=== PATIENT | female | born 1950 | race Caucasian/White ===

== ENCOUNTER 2019-03-29 04:49 | Inpatient (IN) ==
--- NOTE | 2019-02-20 11:20 | PAT Medication Instructions ---
Medication Instructions Date of Service February 20, 2019 Home Medications Cetyl Myristoleate 1 tab PO BID Multimin 2 tab PO HS Univase 1 tab PO BID aspirin [Aspirin Low Dose] 81 mg PO DAILY stepan seed oil-omega 3-6-9 1,000 cap PO HS hydrochlorothiazide 12.5 mg PO QAM lisinopril 10 mg PO QAM STOP taking 2 weeks before surgery (or as soon as possible if surgery is within 2 weeks) Cetyl Myristoleate 1 tab PO BID Multimin 2 tab PO HS stepan seed oil-omega 3-6-9 1,000 cap PO HS DO NOT take the morning of surgery Univase 1 tab PO BID Take morning of surgery With a small sip of water, OTHERWISE NOTHING TO EAT OR DRINK AFTER MIDNIGHT: aspirin [Aspirin Low Dose] 81 mg PO DAILY Take evening before surgery Univase 1 tab PO BID Other Notes If you have any questions please call us at [phone] or [phone] or [phone] or [phone]
--- NOTE | 2019-02-20 13:07 | Anesthesiology Consultation ---
Date of Service February 20, 2019 Assessment & Plan (1) Encounter for pre-operative examination: Chart Review Chart Review: Pending: Refer to Additional Notes / Consult section (pending testing labs, EKG,chest) Consults Requested none History Surgery Operation Date: 03/29/19 09:20 Proposed Procedures p Left Total Knee Arthroplasty - Bigg Barboza MD Height/Weight Height: 5 ft 3 in Weight: 92.3 kg Allergies Allergy/AdvReac Type Severity Reaction Status Date / Time clindamycin Allergy Severe tongue Verified 02/20/19 08:50 swelling nickel Allergy Mild redness & Verified 02/20/19 08:52 irritation Penicillins Allergy Unknown Unknown Verified 02/20/19 08:50 Medications Home Medications Medication Instructions Recorded Confirmed Last Taken Cetyl Myristoleate 1 tab PO BID 02/20/19 02/20/19 Unknown Multimin 2 tab PO HS 02/20/19 02/20/19 Unknown Univase 1 tab PO BID 02/20/19 02/20/19 Unknown aspirin [Aspirin Low Dose] 81 mg PO DAILY 02/20/19 02/20/19 Unknown stepan seed oil-omega 3-6-9 1,000 cap PO HS 02/20/19 02/20/19 Unknown hydrochlorothiazide 12.5 mg PO QAM 02/20/19 02/20/19 Unknown lisinopril 10 mg PO QAM 02/20/19 02/20/19 Unknown Past Medical History Medical History Asthma asthmatic-bronchitis as a child. no inhalers currently. no problems currently. Hypertension Osteoarthritis Past Family History Family History Mother FHx: Parkinson's disease Past Surgical History Surgical History History of bilateral tubal ligation History of colonoscopy History of tonsillectomy History of tooth extraction Social History Smoking Status: Former smoker tobacco type: cigarettes Smoking cigarettes per day: 1 ppd x 10 years Do You Dip or Chew Tobacco: No Smoking End Date: 1984 Hx Alcohol Use: No Hx Substance Use: No substance use type: does not use Physical Exam Vital Signs Last Vital Signs Temp 36.6 C 02/20/19 12:25 Pulse 70 02/20/19 12:25 Resp 18 02/20/19 12:25 BP 145/83 H 02/20/19 12:25 Pulse Ox 98 02/20/19 12:25 ENMT Mouth: + dentures (full upper, partial lower) Thyromental Distance: > or= 3.5 Finger Breadths Mallampati Class: III Neck normal visual inspection Respiratory normal respiratory effort Auscultation: lungs clear to auscultation bilaterally Cardiovascular Rate/Rhythm: regular rate and regular rhythm Heart Sounds: + murmur (2/6 systolic, non-radiating) Vessels: no carotid bruit Musculoskeletal Extremities: extremities normal to inspection
[2019-02-20 13:20] LABS: Basophils # (auto) 0.04 K/uL (0-0.2); Basophils % (auto) 0.5 %; Eosinophils # (auto) 0.17 K/uL (0-0.5); Hematocrit (blood only) 40.7 % (37-47); Hemoglobin 13.8 g/dL (12.0-16.0); Immature Granulocytes # (auto) 0.01 K/uL (0.00-0.02); Immature Granulocytes % (auto) 0.1 %; Lymphocytes # (auto) 2.41 K/uL (1.2-3.4); Lymphocytes % (auto) 28.3 %; Mean Corpuscular Hemoglobin 28.5 pg (25-34); Mean Corpuscular Hgb Conc 33.9 g/dL (32-36); Mean Corpuscular Volume 84.1 fL (80-100); Mean Platelet Volume 10.7 fL (7.4-10.4); Monocytes # (auto) 0.65 K/uL (0.11-0.59); Monocytes % (auto) 7.6 %; Neutrophils # (auto) 5.23 K/uL (1.4-6.5); Neutrophils % (auto) 61.5 %; Platelet Count 248 K/uL (130-400); RDW Coefficient of Variation 14.2 % (11.5-14.5); RDW Standard Deviation 43.7 fL (36.4-46.3); Red Blood Count 4.84 M/uL (4.2-5.4); White Blood Count 8.51 K/uL (4.8-10.8)
--- NOTE | 2019-02-20 13:27 | XRay Report ---
XR chest Pre-admission PA/Lat CLINICAL HISTORY: 68 years-old Female presenting with preoperative evaluation. TECHNIQUE: PA and lateral views of the chest were obtained. COMPARISON: None. FINDINGS: Atherosclerosis of the aortic arch. Cardiac silhouette mildly enlarged. Lungs and pleural spaces cb r. Degenerative changes of the thoracic spine. Upper abdomen normal. IMPRESSION: 1. Mild cardiomegaly. No other convincing evidence of acute cardiopulmonary disease. Electronically signed by: Júnior Higginbotham M.D. 02/20/2019 1:25 PM
[2019-02-20 13:28] LABS: BUN Creatinine Ratio 16.9 (10-20); Calcium 9.3 mg/dl (8.5-10.1); Creatinine Clr Calc Pharmacy 67.1 ml/min; Est GFR (African American) 78.3; Est GFR (Non-African American) 67.5
[2019-02-20 13:32] LABS: Partial Thromboplastin Time 28.3 Seconds (21.0-31.0); Prothrombin Time 9.9 Seconds (9.0-12.0)
--- NOTE | 2019-03-24 01:40 | History and Physical Report ---
DATE OF ADMISSION: 03/29/2019 CHIEF COMPLAINT: Bilateral knee pain and discomfort, left side greater than right. HISTORY OF PRESENT ILLNESS: The patient is a 68-year-old white female referred by my partner Dr. Baird for surgical treatment of her knees. She has got a fairly long history of bilateral knee pain and discomfort that has just gradually gotten worse over time. It has gotten significantly worse over the past several months. She has had intermittent injuries to her knee from time to time but nothing longstanding. Pain has got pretty global. The more she walks, the more it hurts. It bothers with bending and squatting activities. She has difficulty going up and down stairs. The more she walks, the more pain she has. She would like to proceed with definitive treatment. PAST MEDICAL HISTORY: 1. Hypertension. 2. Bronchial asthma. 3. Obesity with a BMI of 36. 4. Osteoarthritis. PAST SURGICAL HISTORY: Include tubal ligation. ALLERGIES: 1. PENICILLIN, REACTION UNKNOWN. 2. CLINDAMYCIN. 3. QUESTION OF A NICKEL ALLERGY. CURRENT MEDICINES: Include: 1. Lisinopril half tablet a day. 2. Hydrochlorothiazide half tablet a day. 3. HepatoVin supplement. 4. Univasc. 5. CBD oil. 6. Multivitamin. 7. Baby aspirin. SOCIAL HISTORY: A 68-year-old white female. She is . She is from [place]. Rare alcohol intake. No significant smoking or drug history. FAMILY HISTORY: Significant for heart disease and kidney cancer. REVIEW OF SYSTEMS: Negative for diabetes, neurologic problems, vascular problems or bleeding disorders. Denies any chest pain or shortness of breath. No history of DVT or PE. No known bleeding problems. PHYSICAL EXAMINATION: GENERAL: Shows a pleasant, middle-aged female. She looks to be in pretty good health. HEENT: Benign. NECK: Supple, no lymphadenopathy. LUNGS: Clear to auscultation. HEART: Regular rate and rhythm. ABDOMEN: Soft, nontender, nondistended. EXTREMITIES: Grossly neurovascularly intact except as follows: Examination of both knees reveal patient ambulates with a little bit of a limp. Examination of the left knee reveals a walk with a little bit of a flexion contracture. Her range of motion is about 10-15 degrees short of full extension to about 110 degrees of flexion. Knee is a bit stiff. She is tender diffusely around her knee. She has got bony hypertrophy medially and laterally. Moderate sized joint effusion. No pain with hip motion. Examination of the right knee reveals fairly neutral alignment. Mild diffuse tenderness. Small knee effusion. Range of motion 5-120. No instability. IMAGING DATA: X-rays of both knees reveal advanced bilateral knee DJD. X-ray of the left knee is a bit worse than the right. She has got complete loss of her medial joint space with some tibiofemoral subluxation and osteophytes in all 3 compartments. The right knee is in a bit more valgus alignment. She has got advanced patellofemoral arthritis on the left side as well. ASSESSMENT: A 68-year-old white female with advanced bilateral knee degenerative joint disease. The left side is more symptomatic than the right. She has failed conservative treatment and elected to proceed with left knee replacement. PLAN: We will take her to the operating room and do a left total knee replacement. The risks and benefits of this procedure were explained to the patient, including but not limited to, DVT, PE, , infection, neurological injury, vascular injury, bleeding problem, pain, limited range of motion, stiffness, failure to relieve her symptoms, incomplete relief of symptoms, need for further surgery in the future, fracture, leg length inequality, nerve palsy, etc. The patient understands and desires to proceed. Informed consent was obtained. We did talk about holding her lisinopril the morning of surgery. She apparently has some concern of a nickel allergy, so we will likely use a Crawley and Nephew Journey zirconium total knee arthroplasty. She plans discharged to home using the [facility] home health program. SATNAM
[~2019-03-29 04:49] MED LIST: ANCEF - ALLERGY NOTED TO ORDERED MEDICATION SCH
[2019-03-29] MEDS ORDERED: LR 500ML BOLUS, THEN 15ML/HR IV SCH (06:00)
[2019-03-29] MEDS ORDERED: LR 60ML/HR IV SCH (06:00)
[2019-03-29] MEDS ORDERED: BUPIVACAINE LIPOSOME/PF 266 MG, BUPIVACAINE/EPINEPHRINE 50 ML, SODIUM CHLORIDE 0.9% 30 ... INFIL SCH (06:00)
[2019-03-29] MEDS ORDERED: FAMOTIDINE 20 MG TAB PO SCH (06:00)
[2019-03-29] MEDS ORDERED: METOCLOPRAMIDE HCL 10 MG TABLET PO SCH (06:00)
[2019-03-29] MEDS ORDERED: SCOPOLAMINE 1.5 MG TDSY TD SCH (06:00)
[2019-03-29] MEDS ORDERED: CEFAZOLIN 2000MG 2,000 MG/15 ML SYR IV SCH (06:00)
[2019-03-29] MEDS ORDERED: GABAPENTIN 300 MG CAP PO SCH (06:00)
[2019-03-29] MEDS ORDERED: ACETAMINOPHEN 500 MG TAB PO SCH (06:00)
[2019-03-29] MEDS ORDERED: MIDAZOLAM HCL 1 MG/ML 2ML VIAL ONE ×2 (06:25→07:59)
[2019-03-29] MEDS ORDERED: EPINEPHrine INJ 1 MG/ML AMP ONE (06:25)
[2019-03-29] MEDS ORDERED: fentaNYL citrate 100 MCG/2 ML VIAL ONE (06:25)
[2019-03-29] MEDS ORDERED: ROPIVACAINE 0.5% 5 MG/ML 30 ML VIAL ONE (06:25)
[2019-03-29] MEDS ORDERED: BUPIVACAINE 0.5 % 5 MG/1 ML PF 10ML VIAL ONE (06:25)
[2019-03-29] MEDS ORDERED: PROPOFOL IV EMULSION 10 MG/ML 20 ML VIAL IV ONE (06:25)
[2019-03-29] MEDS ORDERED: TRANEXAMIC ACID 1,000 MG **IV Intra-op IV SCH (06:30)
[2019-03-29] MEDS ORDERED: BUPIVACAINE/EPINEPHRINE 0.25% 1:200,000 30 ML VIAL ONE (06:43)
[2019-03-29] MEDS ORDERED: BUPIVACAINE LIPOSOME 1.3% 266 MG/20 ML VIAL ONE (06:43)
[2019-03-29] MEDS ORDERED: SODIUM CHLORIDE 0.9% PF 50 ML VIAL ONE (06:43)
[2019-03-29] MEDS ORDERED: BACITRACIN INJ 50,000 UNIT VIAL ONE (06:43)
--- NOTE | 2019-03-29 06:52 | History & Physical Bridge Note ---
Date of Service March 29, 2019 History & Physical Bridge Note I have examined the patient, reviewed the History & Physical and in the interval since the performance of the History & Physical I have noted the following changes of clinical significance: no changes noted
[2019-03-29] MEDS ORDERED: CEFAZOLIN 2,000 MG/15 ML IV PUSH IV ONE (06:54)
[2019-03-29] MEDS ORDERED: CEFAZOLIN 2000MG 2,000 MG/15 ML SYR IV ONE (06:55)
[2019-03-29] MEDS ORDERED: ePHEDrine sulfate 50 MG/ML SYR ONE (07:06)
[2019-03-29] MEDS ORDERED: PHENYLEPHRINE 100MCG/ML 5ML SYR ONE (07:06)
[2019-03-29] MEDS ORDERED: HYDROmorphone INJ 1 MG/ML SYRINGE IV PRN (07:08)
[2019-03-29] MEDS ORDERED: PHENYLEPHRINE 100MCG/ML 5ML SYR IV PRN (07:08)
[2019-03-29] MEDS ORDERED: ePHEDrine sulfate 50 MG/ML AMP IV PRN (07:08)
[2019-03-29] MEDS ORDERED: fentaNYL citrate 100 MCG/2 ML VIAL IV PRN (07:08)
[2019-03-29] MEDS ORDERED: MEPERIDINE HCL 25 MG/ML CARP IV PRN (07:08)
[2019-03-29] MEDS ORDERED: ATROPINE SULFATE 0.1 MG/ML 10ML SYR IV PRN (07:08)
[2019-03-29] MEDS ORDERED: LABETALOL HCL IV 5 MG/ML 20ML IV PRN (07:08)
[2019-03-29] MEDS ORDERED: ONDANSETRON INJ 2 MG/ML 2 ML VIAL IV PRN ×2 (07:08→10:02)
--- NOTE | 2019-03-29 08:49 | Post Operative Brief Note ---
PG Immediate Post Op with CF Date of Surgery March 29, 2019 Pre & Post Diagnosis Operation Date: 03/29/19 07:00 Pre-Op Diagnosis: LEFT KNEE DEGENERATIVE JOINT DISEASE W/KNEE PAIN Post-Op Diagnosis: LEFT KNEE DEGENERATIVE JOINT DISEASE W/KNEE PAIN I identified the patient and participated in the time-out.: Yes Procedure Operation Date: 03/29/19 07:00 Actual Procedures p Left Total Knee Replacement(Left) - Bigg Barboza MD Surgeon Bigg Barboza MD Environmental Aid Valorie, PAC Estimated Blood Loss 50 Findings Consistent with Post-Op Diagnosis Fluids 800 cc Specimens Specimen Description: A. Left knee bone and tissue Drains Cervantes Catheter Anesthesia Type Spinal MAC Complications none Disposition Accompanied Patient To Recovery: No Disposition: Recovery Room
--- NOTE | 2019-03-29 09:12 | XRay Report ---
LEFT KNEE 2 VIEWS History: Left total knee arthroplasty. Degenerative arthritis. Postop. FINDINGS: The patient is status post a left total knee arthroplasty. The hardware is intact. No fract ure or dislocation. Skin annetta are in place. IMPRESSION: Left total knee arthroplasty. No evidence for hardware complication. Electronically signed by: Bobby Galvez M.D. 03/29/2019 9:11 AM
--- NOTE | 2019-03-29 09:33 | Anesthesiology Progress Note ---
Date of Service March 29, 2019 Anesthesia Post Procedure Vital Signs Vital Signs: Temp Pulse Pulse Resp BP Pulse Ox 03/29/19 09:30 65 13 130/60 97 03/29/19 09:20 58 L 12 119/61 97 03/29/19 09:10 36.2 C L 62 13 121/57 L 98 03/29/19 09:00 70 19 125/62 96 03/29/19 08:53 36.2 C L 72 17 108/57 L 95 03/29/19 05:29 36.8 C 75 20 175/86 H 97 Transfer of Care Handoff Completed per policy Notes Mental Status: alert / awake / arousable Patient Amnestic to Procedure: Yes Nausea / Vomiting: adequately controlled Pain: adequately controlled Airway Patency, RR, SpO2: stable & adequate BP & HR: stable & adequate Hydration State: stable & adequate Neuraxial Anesthesia: was administered and sensory block is resolving Anesthetic Complications: no major complications apparent and Pt Satisfied with anesthetic care
--- NOTE | 2019-03-29 09:34 | Operative Report ---
DATE OF OPERATION: 03/29/2019 SURGEON: Bigg Barboza MD MANAGER OF FINANCIAL: JANET Hughes PREOPERATIVE DIAGNOSIS: Left knee degenerative joint disease. POSTOPERATIVE DIAGNOSIS: Left knee degenerative joint disease. PROCEDURE PERFORMED: Left cemented posterior stabilized total knee arthroplasty. COMPLICATIONS: None. ESTIMATED BLOOD LOSS: 50 mL. FLUID REPLACEMENT: 800 mL crystalloid fluid replacement. TOURNIQUET TIME: 63 minutes at 300 mmHg. ANESTHESIA: Spinal with adductor canal block. DRAINS: None. SPECIMENS: Left knee sent for pathology. OPERATIVE INDICATIONS: The patient is a 68-year-old fairly active female who has had a several year history of bilateral knee pain and discomfort, left side greater than right. She has been through extensive conservative treatment. She was significantly limited by her disease and elected to proceed with total knee arthroplasty. Of note, the patient does have an apparent NICKEL ALLERGY, so we used a Crawley & Nephew zirconium total knee arthroplasty/journey II. OPERATIVE FINDINGS: Operative findings revealed advanced left knee DJD. She had extensive grade 4 [id number] disease and erosions in all 3 compartments. She had osteophytes in all 3 compartments. She had about 10-15 degree flexion contracture. OPERATIVE IMPLANTS: Operative implants consisted of: 1. Crawley & Nephew Journey II size 5 left posterior stabilized femoral component. 2. Crawley & Nephew Journey II size 3 tibial tray. 3. An 11 mm posterior stabilized polyethylene insert. 4. A 29 x 8 all poly patella. OPERATIVE PROCEDURE: The patient was taken to the operating room, identified and placed on the operating table in supine position. All contact areas were appropriately padded. IV antibiotics provided by anesthesia team. A spinal anesthetic and adductor canal block had been provided in the holding area. Cervantes catheter was placed in sterile fashion. Left thigh tourniquet was then placed and left lower extremity was then prepped and draped in usual sterile fashion. Left leg was elevated and exsanguinated with use of an Esmarch and tourniquet was placed at 300 mmHg. An anterior approach to the left knee was then performed through a longitudinal incision centered over the patella. Sharp dissection was carried through subcutaneous tissues down to the extensor mechanism. A medial parapatellar arthrotomy incision was made. Some subperiosteal dissection was carried out medially. The fat pad resected from beneath the patellar tendon. The lateral patellofemoral ligament was released. The patella was subluxated laterally and the knee was flexed. The osteophytes were taken off the distal femur. The ACL and PCL ligament was then released from the distal femur and the tibia subluxated anteriorly. The external tibial alignment jig was then placed in the anterior face of the tibia and adjusted 16 mm medially which was maximal adjustment. Proximal tibial cut was made to remove about 2-3 mm of bone from the most deficient aspect of the medial tibial plateau. Some osteophytes were taken off medial and posteromedially. Tibia sized to a size 3. Attention was then drawn to the femur. The distal femur was entered with a sharp drill bit. Intramedullary canal was suctioned. A left 5-degree valgus cutting guide was placed. Distal femoral cutting block was pinned in place. Distal femoral cut was made to take an additional 2 mm of bone off distal femur. The femur was then sized. It was sized to a size 5. We downsized this slightly. The AP cutting block was pinned parallel to the epicondylar axis, which was 6 degrees of external rotation. The anterior cut, anterior cord, posterior cut, posterior chamfer, anterior chamfer cuts were then made. The knee was then flexed. The remnants of the medial and lateral menisci were excised. The osteophytes were taken off the posterior aspect of the femur. The femoral component was then placed. The notch preparation guide was placed and the femoral notch was created. The trochlear component was then placed. I then trialed the knee and the 11 mm insert fit most appropriately. Attention was then drawn to patella. The patella was cleaned of all soft tissues. There were large osteophytes around the patella which were removed. Patella thickness measured 18 mm and was cut down to about 13. It was sized to a size 29 patella. Lug holes were drilled for a 29 patella. Lateral osteophyte was removed. Patella button was placed. Knee was taken through range of motion, patella tracked quite nicely with no thumbs test. Attention was then drawn toward placement of permanent components. All trial components were removed. Bone plug was placed in the distal femur to limit blood loss. A double batch of Palacos G cement was mixed. A Crawley and Nephew size 5 left posterior stabilized femoral component, size 3 tibial tray, 11 mm posterior stabilized insert, and a 29 x 9 all poly patella were then cemented in place. Knee was brought into full extension until cement hardened. A final cement check was then performed. Pericapsular tissues were injected with a total of 100 mL, a combination of 20 mL Exparel, 30 mL of normal saline, 50 mL of 0.25% Marcaine with epinephrine. The patient did receive 1 gram of tranexamic acid. The tourniquet was then let down for a tourniquet time 63 minutes. Hemostasis was assured with use of electrocautery. The wound was once again irrigated. The extensor mechanism was then closed with combination of #1 PDS suture and #1 Vicryl suture in a [id number] fashion. Extensor mechanism was checked and found to be intact. The subcutaneous tissue was then closed with #2 Dexon suture in a buried interrupted fashion. Skin was closed with skin annetta. Leg was then cleaned, dried and a sterile dressing of Xeroform, 4 x 4, sterile cast padding and Arben bandage were applied. The patient then transferred to the recovery room in stable condition. The patient tolerated the procedure well with no complications. All needle and sponge counts were correct at the end of the operation. I attest to the content of the Intraoperative Record and any orders documented therein. Any exception s are noted below.
[2019-03-29] MEDS ORDERED: NALOXONE HCL 0.4 MG/1 ML VIAL/CARP IV PRN (10:02)
[2019-03-29] MEDS ORDERED: MAGNESIUM HYDROXIDE SUSP 30 ML UDC PO PRN (10:02)
[2019-03-29] MEDS ORDERED: METOCLOPRAMIDE HCL INJ 5 MG/ML 2 ML VIAL IV PRN (10:02)
[2019-03-29] MEDS ORDERED: HYDROmorphone INJ 0.5 MG/0.5 ML SYR IV PRN (10:02)
[2019-03-29] MEDS ORDERED: bisacodyL 10 MG SUPP PR PRN (10:02)
[2019-03-29] MEDS ORDERED: ALUMINUM/MAGNESIUM SUSP 30 ML UDC PO PRN (10:02)
[2019-03-29] MEDS: lisinopriL 20 MG TAB PO SCH (11:55)
[2019-03-29] MEDS: ASPIRIN 81 MG ECTAB PO SCH ×2 (11:55→20:44)
[2019-03-29] MEDS: MULTIVITAMIN TAB PO SCH (11:55)
[2019-03-29] MEDS: KETOROLAC TROMETHAMINE 15 MG/ML VIAL IV SCH ×2 (11:56→17:47)
[2019-03-29] MEDS: hydroCHLOROthiazide 25 MG TAB PO SCH (11:56)
[2019-03-29] MEDS: SODIUM CHLORIDE 0.9% 1000ML 1,000 ML IV SCH ×2 (11:56→20:44)
[2019-03-29] MEDS: DOCUSATE SODIUM 100 MG CAP PO SCH ×2 (11:56→20:44)
[2019-03-29] MEDS: ACETAMINOPHEN 500 MG TAB PO SCH ×2 (14:36→22:35)
[2019-03-29] MEDS: CEFAZOLIN 2000MG 2,000 MG/15 ML SYR IV SCH ×2 (14:36→22:35)
[2019-03-29] MEDS ORDERED: TRANEXAMIC ACID 1,000 MG in 0.9 % SODIUM CHLORIDE 100 ML IV SCH (15:00)
[2019-03-29] MEDS: CHECK SCOPOLAMINE PATCH PLACEMENT SCH (17:19)
[2019-03-29] MEDS: ASCORBIC ACID 500 MG TAB PO SCH (17:46)
[2019-03-29] MEDS: FERROUS GLUCONATE 324 MG TAB PO SCH (17:46)
--- NOTE | 2019-03-29 18:09 | Progress Note ---
DATE: 03/29/2019 SUBJECTIVE: A 68-year-old white female postop from a left knee replacement. She is doing well. Pain is controlled. No chest pain or shortness of breath. Not feeling dizzy or lightheaded. OBJECTIVE: VITAL SIGNS: Temperature 36.4. Vital signs stable. GENERAL: Shows a pleasant, middle-aged female. She was lying when I visited her this evening. LUNGS: Clear to auscultation. HEART: Regular rate and rhythm. ABDOMEN: Soft, nontender, nondistended. EXTREMITIES: Grossly neurovascularly intact except as follows: Examination of the left lower extremity reveals the leg to be well aligned. She can dorsiflex and plantarflex her foot appropriately. She is neurologically intact. X-RAYS: X-rays of the left knee from recovery room reviewed. It shows a left cemented posterior stabilized total knee arthroplasty. Components are in good position. No signs of problems. ASSESSMENT: A 68-year-old female postop from a left knee replacement, doing well. Pain is controlled. She is neurologically intact. PLAN: 1. DVT prophylaxis including thigh-high TEDs, SCDs, and aspirin twice daily. 2. PT/OT. Weight bear as tolerated. Left total knee protocol. 3. Pain control, doing pretty well with current pain regimen. 4. IV antibiotics x24 hours. 5. Disposition: Plan to discharge to home likely with some home health once medically stable and recovered.
[2019-03-29] MEDS: SENNA 8.6 MG TAB PO SCH (20:44)
[2019-03-30] MEDS: CHECK SCOPOLAMINE PATCH PLACEMENT SCH ×4 (00:03→23:43)
[2019-03-30] MEDS: KETOROLAC TROMETHAMINE 15 MG/ML VIAL IV SCH ×5 (00:04→23:41)
[2019-03-30 05:26] LABS: Hematocrit (blood only) 32.6 % (37-47); Hemoglobin 11.2 g/dL (12.0-16.0); Mean Corpuscular Hemoglobin 28.4 pg (25-34); Mean Corpuscular Hgb Conc 34.4 g/dL (32-36); Mean Corpuscular Volume 82.7 fL (80-100); Mean Platelet Volume 9.9 fL (7.4-10.4); Platelet Count 188 K/uL (130-400); RDW Coefficient of Variation 14.5 % (11.5-14.5); RDW Standard Deviation 44.3 fL (36.4-46.3); Red Blood Count 3.94 M/uL (4.2-5.4); White Blood Count 9.12 K/uL (4.8-10.8)
[2019-03-30 05:53] LABS: BUN Creatinine Ratio 18.3 (10-20); Calcium 7.8 mg/dl (8.5-10.1); Creatinine Clr Calc Pharmacy 56.7 ml/min; Est GFR (African American) 64.1; Est GFR (Non-African American) 55.3
[2019-03-30] MEDS: ACETAMINOPHEN 500 MG TAB PO SCH ×3 (06:12→21:32)
--- NOTE | 2019-03-30 08:04 | Progress Note ---
DATE: 03/30/2019 SUBJECTIVE: A 68-year-old white female postop day #1 from a left knee replacement. She is doing pretty well. Pain has not been too bad and she describes mostly just tightness around her leg. No chest pain or shortness of breath. Not feeling dizzy or lightheaded. OBJECTIVE: VITAL SIGNS: Temperature 36.7. Vital signs stable. GENERAL: Physical examination shows a pleasant middle-aged female. She is lying in bed, looks pretty comfortable. EXTREMITIES: Examination of the left leg reveals the leg to be well aligned. Dressing is clean, dry and intact. She can dorsiflex and plantarflex her foot appropriately. She is neurologically intact. LABORATORY DATA: Hemoglobin 11.2, hematocrit 32.6. Electrolytes are stable. ASSESSMENT: A 68-year-old white female postop day #1 from a left knee replacement, doing pretty well. Pain has been reasonably well controlled. She has just been tired and having trouble sleeping in the hospital. She is neurologically intact. PLAN: 1. DVT prophylaxis including thigh-high TEDs, SCDs, and aspirin twice a day. 2. PT/OT. Weight bear as tolerated. Left total knee protocol. 3. Pain control, doing okay with current pain regimen. 4. Disposition: She is planning to be discharged to home with some home health once medically stable and adequately recovered.
[2019-03-30] MEDS: ASCORBIC ACID 500 MG TAB PO SCH ×2 (08:43→18:09)
[2019-03-30] MEDS: DOCUSATE SODIUM 100 MG CAP PO SCH ×2 (08:43→20:27)
[2019-03-30] MEDS: FERROUS GLUCONATE 324 MG TAB PO SCH ×2 (08:43→18:09)
[2019-03-30] MEDS: MULTIVITAMIN TAB PO SCH (08:44)
[2019-03-30] MEDS: ASPIRIN 81 MG ECTAB PO SCH ×2 (08:44→20:27)
[2019-03-30] MEDS: hydroCHLOROthiazide 25 MG TAB PO SCH (08:44)
[2019-03-30] MEDS: lisinopriL 20 MG TAB PO SCH (08:45)
[2019-03-30] MEDS: TRAMADOL HCL 50 MG TABLET PO PRN ×3 (08:49→23:40)
[2019-03-30] MEDS: SENNA 8.6 MG TAB PO SCH (20:27)
[2019-03-31] MEDS: KETOROLAC TROMETHAMINE 15 MG/ML VIAL IV SCH (05:49)
[2019-03-31] MEDS: ACETAMINOPHEN 500 MG TAB PO SCH (05:49)
--- NOTE | 2019-03-31 08:46 | Progress Note ---
DATE: 03/31/2019 SUBJECTIVE: A 68-year-old white female postop day 2 from a left knee replacement. She is doing well. Pain is controlled. Therapy has gone pretty well. No chest pain or shortness of breath. Not feeling dizzy or lightheaded. OBJECTIVE: VITAL SIGNS: Temperature 36.7. Vital signs stable. GENERAL: This is a pleasant elderly female. She is sitting on bed, looks pretty comfortable. EXTREMITIES: Examination of the left leg reveals the leg to be well aligned. Dressing is clean, dry and intact. No significant drainage. Calf is soft and supple. She is neurologically intact. ASSESSMENT: A 68-year-old white female postop day 2 from left knee replacement, doing pretty well. Pain is controlled. She is neurologically intact. PLAN: 1. DVT prophylaxis including thigh-high TEDs, SCDs, and aspirin twice a day. 2. PT/OT. Weight bear as tolerated. Left total knee protocol. 3. Pain control, doing well with current pain regimen. 4. Disposition: Plan to discharge to home with some home health likely later today.
[2019-03-31] MEDS: hydroCHLOROthiazide 25 MG TAB PO SCH (09:14)
[2019-03-31] MEDS: ASCORBIC ACID 500 MG TAB PO SCH (09:14)
[2019-03-31] MEDS: lisinopriL 20 MG TAB PO SCH (09:14)
[2019-03-31] MEDS: FERROUS GLUCONATE 324 MG TAB PO SCH (09:15)
[2019-03-31] MEDS: ASPIRIN 81 MG ECTAB PO SCH (09:15)
[2019-03-31] MEDS: MULTIVITAMIN TAB PO SCH (09:15)
[2019-03-31] MEDS: CHECK SCOPOLAMINE PATCH PLACEMENT SCH (09:15)
[2019-03-31] MEDS: DOCUSATE SODIUM 100 MG CAP PO SCH (09:15)
[2019-03-31] MEDS: TRAMADOL HCL 50 MG TABLET PO PRN (09:18)
--- NOTE | 2019-04-04 15:35 | Discharge Summary ---
DATE OF ADMISSION: 03/29/2019 DATE OF DISCHARGE: 03/31/2019 ADMITTING PHYSICIAN AND SURGEON: Dr. Bigg Barboza. ADMITTING DIAGNOSIS: Left knee degenerative joint disease. SURGERY PERFORMED: Left total knee arthroplasty. SECONDARY DIAGNOSES: Hypertension, bronchial asthma, obesity, osteoarthritis. CONSULTS: None obtained. HISTORY AND PHYSICAL EXAMINATION: Well documented in the patient's chart. HOSPITAL COURSE: The patient was admitted on 03/29/2019, underwent total knee arthroplasty, tolerated the procedure well. There were no complications. She was transferred to the PACU postoperatively and later to the orthopedic floor for further care. She was given Ancef for antibiotic prophylaxis, DOUGLAS stockings, SCDs and aspirin for DVT prophylaxis. Hemoglobin, hematocrit and vital signs were monitored during her hospital stay and remained stable. She did not require any blood transfusions. There were no complications. By postoperative day #2, she was tolerating a regular diet, pain was controlled with oral pain medicine. She was participating in physical therapy. Postop day #2, she was discharged home, set up with home health services. She was given printed discharge instructions as well as new prescriptions for Tylenol, aspirin and tramadol. Continue her home medicines. Continue physical therapy, weightbearing as tolerated, DOUGLAS stockings. Follow up approximately 2 weeks postop or sooner if there are any problems or concerns.
== END 2019-03-31 11:47 | disposition home health service (06) | DRG 470 ==
LOC: ASU 04:49 → 3E 08:53